=== PATIENT | male | born 1990 | race Caucasian/White ===

== ENCOUNTER 2018-07-11 16:44 | Emergency (ER) | payer BC ==
[~2018-07-11] VITALS: Ht 177.8 cm; Wt 63.2 kg
[~2018-07-11 16:44] MED LIST: ALBU18HF2 INH; INHA1INH2; ONDA4TAB6 PO; PRED20TA PO
[2018-07-11] MEDS ORDERED: AZIT250T83 PO (17:01)
[2018-07-11 17:04] VITALS: BP 101/61
== END 2018-07-11 17:11 | disposition home or self-care (01) ==
LOC: ER 16:45
DX: J40 Bronchitis, not specified as acute or chronic (principal); Z79.2 Long term (current) use of antibiotics; Z79.899 Other long term (current) drug therapy
CPT/HCPCS: 99283

== ENCOUNTER 2023-02-12 11:38 | Emergency (ER) | payer BC, MEDICAID ==
[~2023-02-12] VITALS: Ht 177.8 cm; Wt 65.0 kg
[~2023-02-12 11:38] MED LIST changes: -PRED20TA PO
[2023-02-12 12:17] LABS: BASOPHILS # (AUTO) 0.1 X10'3 (0-0.2); BASOPHILS % (AUTO) 0.4 % (0-1); EOSINOPHILS # (AUTO) 0.1 X10'3 (0-0.9); HEMATOCRIT 45.8 % (42.0-52.0); HEMOGLOBIN 15.3 g/dl (14.0-17.9); LYMPHOCYTES # (AUTO) 1.3 X10'3 (1.1-4.8); LYMPHOCYTES % (AUTO) 10.6 % (21-51); MEAN CORPUSCULAR HEMOGLOBIN 30.9 PG (27.0-31.0); MEAN CORPUSCULAR HGB CONC 33.4 g/dL (33.0-36.5); MEAN CORPUSCULAR VOLUME 92.3 FL (78-98); MEAN PLATELET VOLUME 7.5 FL (7.4-10.4); MONOCYTES # (AUTO) 0.8 X10'3 (0-0.9); MONOCYTES % (AUTO) 6.6 % (2-12); NEUTROPHILS # (AUTO) 10.4 X10'3 (1.8-7.7); NEUTROPHILS % (AUTO) 81.4 % (42-75); PLATELET COUNT 251 X10'3 (140-440); RED BLOOD COUNT 4.96 X10'6 (4.70-6.10); RED CELL DISTRIBUTION WIDTH 13.3 % (11.5-14.5); WHITE BLOOD COUNT 12.7 X10'3 (4.5-11.0)
[2023-02-12 12:30] LABS: ALANINE AMINOTRANSFERASE 29 U/L (12-78); ALBUMIN 4.4 G/DL (3.4-5.0); ALBUMIN/GLOBULIN RATIO 1.4 (1.1-1.5); ALKALINE PHOSPHATASE 62 IU/L (46-116); ANION GAP 9 (8-16); ASPARTATE AMINO TRANSFERASE 20 U/L (10-37); BILIRUBIN,TOTAL 0.4 MG/DL (0.1-1.0); BLOOD UREA NITROGEN 15 MG/DL (7-18); BUN/CREATININE RATIO 12.2 (10.0-20.0); CALCIUM 9.4 MG/DL (8.5-10.1); CHLORIDE 104 MMOL/L (99-107); CREATININE 1.23 MG/DL (0.60-1.10); GLUCOSE 115 MG/DL (70-104); LIPASE 56 U/L (73-393); POTASSIUM 4.1 MMOL/L (3.5-5.1); SODIUM 141 MMOL/L (135-145); TOTAL CARBON DIOXIDE 27.9 MMOL/L (24-32); TOTAL PROTEIN 7.6 G/DL (6.4-8.2); eGFR 69 ML/MIN
[2023-02-12 13:01] LABS: COLOR,URINE YELLOW (Yellow); GLUCOSE, URINE NEGATIVE (Neg); KETONES,URINE NEGATIVE (Neg); LEUKOCYTE ESTERASE ,URINE NEGATIVE (Neg); NITRITES, URINE NEGATIVE (Neg); OCCULT BLOOD,URINE SMALL (Neg); PH,URINE 8.5 (4.8-8.0); PROTEIN,URINE NEGATIVE (Neg); UROBILINOGEN,URINE 0.2 E.U/dL (0.2-1.0)
[2023-02-12 13:02] LABS: CLARITY,URINE SLIGHTLY CLOUDY (Clear); UA COLLECTION TYPE CLN CATCH MIDSTREAM
[2023-02-12 13:08] LABS: BACTERIA,URINE NONE SEEN /HPF (Neg); MUCUS STRANDS FEW /LPF (Neg); SQUAMOUS EPITHELIAL CELL,UR FEW /LPF (FEW); WBC,URINE 0-4 /HPF (0-4)
[2023-02-12 14:50] VITALS: BP 114/83
== END 2023-02-12 14:55 | disposition home or self-care (01) ==
LOC: ER 11:39
DX: R10.9 Unspecified abdominal pain (principal); J45.909 Unspecified asthma, uncomplicated; Z79.899 Other long term (current) drug therapy
CPT/HCPCS: 36415; 74176; 80053; 81001; 83690; 85025; 99284

== ENCOUNTER 2023-04-03 22:26 | Emergency (ER) | payer MEDICAID ==
[~2023-04-03] VITALS: Ht 177.8 cm; Wt 65.9 kg
[2023-04-03 22:34] VITALS: BP 139/86; PULSE 112; RESP 16; TEMP 98.5; O2SAT 99
[2023-04-04] MEDS ORDERED: clindamycin 150mg capsule PO ONE (01:55)
[2023-04-04] MEDS ORDERED: dexamethasone 0.5 mg/5ml unit-dose oral solution PO STA (01:55)
[2023-04-04] MEDS ORDERED: HYDROcodone/acetaminophen 5mg/325mg tablet PO ONE (01:55)
[2023-04-04] MEDS ORDERED: dexamethasone sod phosphate 10mg/ml inj IM STA (02:31)
[2023-04-04] MEDS ORDERED: HYDR-3965 PO (04:00)
[2023-04-04] MEDS ORDERED: PRED20TA PO (04:00)
[2023-04-04] MEDS ORDERED: CLIN300C3 PO (04:00)
== END 2023-04-04 04:16 | disposition home or self-care (01) ==
LOC: ER 22:27
DX: K08.89 Other specified disorders of teeth and supporting structures (principal); K02.9 Dental caries, unspecified; J45.909 Unspecified asthma, uncomplicated; Z79.2 Long term (current) use of antibiotics; Z79.899 Other long term (current) drug therapy
CPT/HCPCS: 96372; 99283; J1100

== ENCOUNTER 2024-02-21 20:55 | Emergency (ER) | payer MEDICAID ==
[~2024-02-21] VITALS: Ht 177.8 cm; Wt 68.2 kg
[~2024-02-21 20:55] MED LIST changes: +CLIN300C3 PO
[2024-02-21 21:01] VITALS: BP 124/60; PULSE 95; RESP 14; TEMP 98.1; O2SAT 100
[2024-02-21] MEDS: TETanus/Pertussis (Acell)/Diphther VAC/PF (Tdap-Adult) 0.5ml syringe IMVAC ONE (21:43)
[2024-02-21] MEDS ORDERED: CEPH-585 PO (22:38)
[2024-02-21] MEDS: cephalexin 250mg capsule PO ONE (22:41)
== END 2024-02-21 22:52 | disposition home or self-care (01) ==
LOC: ER 20:56
DX: S51.011A Laceration without foreign body of right elbow, initial encounter (principal); S50.01XA Contusion of right elbow, initial encounter; J45.909 Unspecified asthma, uncomplicated; Z79.2 Long term (current) use of antibiotics; Z79.899 Other long term (current) drug therapy; X58.XXXA Exposure to other specified factors, initial encounter; Y93.89 Activity, other specified; Y92.89 Other specified places as the place of occurrence of the external cause; Y99.8 Other external cause status
CPT/HCPCS: 73080; 99283